=== PATIENT | male | born 1960 | race Caucasian/White ===

== ENCOUNTER 2021-02-20 11:22 | Day surgery (SDC) | payer OTHER ==
[~2021-02-20] VITALS: Ht 172.7 cm; Wt 111.8 kg
[2021-02-20] VITALS (9 sets, daily range): BP systolic 128–151; BP diastolic 75–92; PULSE 63–78; TEMP 98.1
[2021-02-20] MEDS ORDERED: NORVASC 10MG10 MG PO (12:04)
[2021-02-20] MEDS ORDERED: ASPIRIN 32325 MG/TAB PO (12:04)
[2021-02-20] MEDS ORDERED: HCTZ 25MG TAB25 MG PO (12:05)
[2021-02-20] MEDS ORDERED: COREG 25MG25 MG/TAB PO (12:05)
[2021-02-20] MEDS ORDERED: COZAAR 50MG50 MG/TAB PO (12:06)
[2021-02-20] MEDS ORDERED: MAG-OX 400400 MG/TAB PO (12:07)
[2021-02-20] MEDS ORDERED: EPA FISH OIL1 SGL PO (12:08)
[2021-02-20] MEDS ORDERED: ZYRTEC 10MG10 MG PO (12:08)
[2021-02-20] MEDS ORDERED: HAWTHORNE BERRY PO (12:08)
[2021-02-20 12:38] LABS: CALCIUM 9.2 mg/dL (8.4-10.2); CREATININE, serum 0.87 (0.66-1.25); HEMATOCRIT 41.4 % (42.0-52.0); HEMOGLOBIN 14.3 g/dl (13.5-18.0); MAGNESIUM 2.1 mg/dL (1.6-2.3); MEAN CELL VOLUME 87 fl (80.0-100.0); MEAN CORPUSCULAR HEMOGLOBIN 30 pg (27.0-31.0); MEAN CORPUSCULAR HGB CONC 35 g/dl (33.0-37.0); MEAN PLATELET VOLUME 9.4 fl (7.4-10.4); PLATELET COUNT 153 K/mm3 (130-400); POTASSIUM 4.1 mmol/L (3.4-5.0); RED BLOOD COUNT 4.76 M/mm3 (4.20-5.60); REDCELL DISTRIBUTION WIDTH-CV 13.7 % (11.5-14.5)
[2021-02-20 12:40] LABS: PROTHROMBIN TIME 11.2 SECONDS (9.7-12.8)
[2021-02-20 12:42] LABS: PARTIAL THROMBOPLASTIN TIME 28.9 SECONDS (26.0-37.0)
--- NOTE | 2021-02-20 17:27 | NUR ---
pt care was reassumed from Julian HERNANDEZ at 1630, pt did well during his recovery. TR band was deflated with no problem, site dressed with bandaid, folded 2x2 and coban. CMS intact distal. I reviewed dc/fu instructions with pt who verbalized understanding. pt has been up and is steady on feet. IV dc'd with cath intact, dressing applied. Pt escorted to exit at 1730 via wheelchair.
== END 2021-02-20 17:54 | disposition home or self-care (01) ==
LOC: COL.CAR 11:22
PROVIDERS: Internal Medicine Cardiovascular Disease
DX: I25.10 Atherosclerotic heart disease of native coronary artery without angina pectoris (principal); R07.9 Chest pain, unspecified; R94.39 Abnormal result of other cardiovascular function study; E78.49 Other hyperlipidemia; E66.9 Obesity, unspecified; Z68.39 Body mass index [BMI] 39.0-39.9, adult; I10 Essential (primary) hypertension; Z79.82 Long term (current) use of aspirin; Z79.899 Other long term (current) drug therapy; Z87.891 Personal history of nicotine dependence
CPT/HCPCS: J1644; J2250; J3010; Q9967